=== PATIENT | female | born 1950 | race Caucasian/White ===

== ENCOUNTER 2018-01-11 09:14 | Emergency (ER) | payer OTHER ==
[~2018-01-11] VITALS: Ht 156.2 cm; Wt 57.2 kg
[~2018-01-11 09:14] MED LIST: PHENYTOIN SODI100 MG PO; ZOFRAN ODT4 M1 SL
--- NOTE | 2018-01-11 09:21 | ED AMS/SEIZURE/WEAK/DIZZY ---
History of Present Illness General Chief Complaint: Seizure Stated Complaint: BIBA SEIZURE W/ HISTORY OF Source: patient, family, old records, EMS Exam Limitations: POST ICTAL Vital Signs & Intake/Output Vital Signs & Intake/Output Vital Signs Date Time Temp Pulse Resp B/P B/P Pulse O2 O2 Flow FiO2 Mean Ox Delivery Rate 01/11 0932 98 Room Air Room Air 01/11 09 96.5 82 20 145/80 99 Room Air Room Air Allergies Coded Allergies: No Known Allergies (01/06/18) Reconcile Medications Doxycycline Hyclate 100 MG CAPSULE 1 CAP PO BID ANTIBIOTIC, INFECTION ( Reported) Phenytoin Sodium Extended 100 MG CAPSULE 1 CAP PO TID SEIZURES (Reported) Triage Nurses Notes Reviewed? yes HPI: Patient has had a viral syndrome over the past week however she began to feel better 2 days ago. This morning she got into the shower and then had a witnessed tonic-clonic seizure. Patient has been taking her medications. Patient's last seizure was approximately 10 years ago and again it was after a viral illness. Patient is currently postictal however has no complaints. Patient is alert and oriented however she is unsure what happened. Patient states he does remember getting into the bathtub and extension and she was in the ambulance. Past History Travel History Traveled to [place] past 21 day No Medical History Any Pertinent Medical History? see below for history Neurological: seizure EENT: NONE Cardiovascular: NONE Respiratory: NONE Gastrointestinal: NONE Hepatic: NONE Renal: NONE Musculoskeletal: NONE Psychiatric: NONE Endocrine: NONE Blood Disorders: NONE Cancer(s): NONE LEAD SCIENTIST/Reproductive: NONE Surgical History Surgical History: non-contributory Psychosocial History What is your primary language Bengali Tobacco Use: Never used ETOH Use: denies use Illicit Drug Use: denies illicit drug use Family History Hx Contributory? No Review of Systems Review of Systems Constitutional: Reports: no symptoms. EENTM: Reports: no symptoms. Respiratory: Reports: no symptoms. Cardiovascular: Reports: no symptoms. GI: Reports: no symptoms. Genitourinary: Reports: no symptoms. Musculoskeletal: Reports: no symptoms. Skin: Reports: no symptoms. Neurological/Psychological: Reports: no symptoms. Hematologic/Endocrine: Reports: no symptoms. Immunologic/Allergic: Reports: no symptoms. All Other Systems: Reviewed and Negative Physical Exam Physical Exam General Appearance: well developed/nourished, alert, awake, mild distress Head: atraumatic, normal appearance Eyes: Bilateral: PERRL, EOMI. Ears, Nose, Throat: normal pharynx, normal ENT inspection Neck: normal inspection, supple, full range of motion Respiratory: normal breath sounds, chest non-tender, no respiratory distress, lungs clear Cardiovascular: regular rate/rhythm, normal peripheral pulses Gastrointestinal: normal bowel sounds, soft, non-tender, no organomegaly Back: normal inspection, normal range of motion Extremities: normal range of motion Neurologic/Psych: no motor/sensory deficits, awake, alert, oriented x 3, normal mood/affect Skin: intact, normal color Lymphatic: no anterior cervical desean Core Measures ACS in differential dx? No CVA/TIA Diagnosis No Sepsis Present: No Sepsis Focused Exam Completed? No Progress Differential Diagnosis: intracranial Hem., seizure disorder Plan of Care: Orders Procedure Date/time Status URINALYSIS 01/11 1015 Active DILANTIN 01/11 0920 Complete COMPREHENSIVE METABOLIC PANEL 01/11 09 Complete CBC WITHOUT DIFFERENTIAL 01/11 0920 Complete Current Medications Sig/Brijesh Start time Last Medication Dose Stop Time Status Admin Phenytoin 500 MG ONCE ONE 01/11 1100 UNVr (Dilantin) 01/11 1129 Sodium Chloride 100 ML (Normal Saline 0.9%) Potassium Chloride 40 MEQ ONCE ONE 01/11 1100 AC 01/11 (K-Dur) 01/11 1101 1059 Laboratory Tests 01/11/18 1035: Urine Color Pending, Urine Clarity Pending, Urine pH Pending, Ur Specific [place] Pending, Urine Protein Pending, Urine Ketones Pending, Urine Nitrite Pending, Urine Bilirubin Pending, Urine Urobilinogen Pending, Ur Leukocyte Esterase Pending, Ur Microscopic SEDIMENT EXAMINED, Urine RBC Pending, Urine Hemoglobin Pending, Urine Glucose Pending 01/11/18 0920: Anion Gap 14, Estimated GFR > 60, BUN/Creatinine Ratio 16.7, Glucose 119 H, Calcium 8.9, Total Bilirubin 0.6, AST 73 H, ALT 83 H, Alkaline Phosphatase 155 H, Total Protein 6.5, Albumin 3.7, Globulin 2.8, Albumin/Globulin Ratio 1.3, CBC w Diff NO MAN DIFF REQ, RBC 4.67, MCV 88.5, MCH 30.0, MCHC 33.9, RDW 13.5, MPV 10.6 H, Gran % 46.1, Lymphocytes % 43.2, Monocytes % 10.0 H, Eosinophils % 0.4, Basophils % 0.3, Absolute Granulocytes 2.6, Absolute Lymphocytes 2.5, Absolute Monocytes 0.6, Absolute Eosinophils 0, Absolute Basophils 0, Phenytoin 9.7 L Diagnostic Imaging: Viewed by Me: CT Scan. Discussed w/RAD: CT Scan. Radiology Impression: PATIENT: SOBIA GRANDA PRESENT AGE: 67 PATIENT ACCOUNT NO: [id number] : 49 LOCATION: [facility] ORDERING PHYSICIAN: Kar Anderson MD SERVICE DATE: 01/11/18 EXAM TYPE: CAT - CT CERV SPINE WO IV CONTRAST; CT HEAD WO IV CONTRAST EXAMINATION: CT HEAD WITHOUT CONTRAST. CT CERVICAL SPINE WITHOUT CONTRAST. CLINICAL INFORMATION: Seizure, fall COMPARISON: None TECHNIQUE: A noncontrast CT of the head and a noncontrast CT of the cervical spine with sagittal and coronal reformats are performed. DLP: 931 FINDINGS: No intra-axial or extra-axial hemorrhage. No acute territorial infarct. Ventricles and sulci appear normal. Mild chronic small vessel ischemic disease of the periventricular white matter. Preservation of swift-white matter differentiation. No mass, mass effect, or midline shift. No fracture. The mastoid air cells and visualized paranasal sinuses are clear. Minimal anterolisthesis of C2-C3 which may be related to prominent facet arthrosis on the right. No fracture is demonstrated. No prevertebral soft tissue swelling. There is moderate degenerative disc disease of C4-C5, C5-C6, and C6-C7 with significant bilateral neural foraminal narrowing, as well as T1-T2 with prominent endplate osteophytes. No prevertebral soft tissue swelling. IMPRESSION : No acute intracranial abnormality. Degenerative changes of the cervical spine as described with no acute osseous abnormality. DICTATED BY: Kavon Bryant MD DATE/TIME DICTATED:01/11/181036 DIGITAL STRATEGIST SENIOR MANAGER:CARLENE DATE/TIME TRANSCRIBED:01/11/181036 CONFIDENTIAL, DO NOT COPY WITHOUT APPROPRIATE AUTHORIZATION. <Electronically signed in Other Vendor System> SIGNED BY: Kavon Bryant MD 01/11/18 1049 Initial ED EKG: none Comments: Patient states that her Dilantin level usually runs around 15. Patient states that similar symptoms happen last time she was on doxycycline and she is currently on doxycycline for this viral illness. Departure Departure Disposition: HOME OR SELF CARE Condition: Stable Clinical Impression Primary Impression: Seizure Referrals: Jesenia TORRES,Jose Juan Guaman (PCP/Family) Additional Instructions: Continue medications as previously prescribed. Return if symptoms worsen or for any concerns. Departure Forms: Customer Survey General Discharge Information
[2018-01-11 09:36] LABS: ABSOLUTE BASOPHIL COUNT 0 /CUMM (0.0-0.2); ABSOLUTE EOSINOPHIL COUNT 0 /CUMM (0.0-0.7); ABSOLUTE GRANULOCYTE CT 2.6 /CUMM (1.4-6.5); ABSOLUTE LYMPH COUNT 2.5 /CUMM (1.2-3.4); ABSOLUTE MONOCYTE COUNT 0.6 /CUMM (0.10-0.60); BASOPHIL % 0.3 % (0.0-2.0); EOSINOPHIL % 0.4 % (0-5); GRANULOCYTE % 46.1 % (42.2-75.2); HEMATOCRIT 41.3 % (37-47); MEAN CORPUSCULAR HGB CONC 33.9 G/DL (33.0-37.0); MEAN CORPUSCULAR VOLUME 88.5 FL (81.0-99.0); MEAN PLATELET VOLUME 10.6 FL (7.4-10.4); RBC DISTRIBUTION WIDTH 13.5 % (11.5-14.5); RED BLOOD CELL CT 4.67 /CUMM (4.20-5.40)
[2018-01-11 09:37] LABS: PLATELET COUNT 136 /CUMM (130-400)
[2018-01-11 09:40] LABS: WHITE BLOOD CELL COUNT 5.7 /CUMM (4.8-10.8)
[2018-01-11] MEDS ORDERED: DOXYCYCLINE HY100 M2 PO (10:43)
--- NOTE | 2018-01-11 10:48 | CT SCAN REPORT ---
EXAMINATION: CT HEAD WITHOUT CONTRAST. CT CERVICAL SPINE WITHOUT CONTRAST. CLINICAL INFORMATION: Seizure, fall COMPARISON: None TECHNIQUE: A noncontrast CT of the head and a noncontrast CT of the cervical spine with sagittal and coronal reformats are performed. DLP: 931 FINDINGS: No intra-axial or extra-axial hemorrhage. No acute territorial infarct. Ventricles and sulci appear normal. Mild chronic small vessel ischemic disease of the periventricular white matter. Preservation of swift-white matter differentiation. No mass, mass effect, or midline shift. No fracture. The mastoid air cells and visualized paranasal sinuses are clear. Minimal anterolisthesis of C2-C3 which may be related to prominent facet arthrosis on the right. No fracture is demonstrated. No prevertebral soft tissue swelling. There is moderate degenerative disc disease of C4-C5, C5-C6, and C6-C7 with significant bilateral neural foraminal narrowing, as well as T1-T2 with prominent endplate osteophytes. No prevertebral soft tissue swelling. IMPRESSION: No acute intracranial abnormality. Degenerative changes of the cervical spine as described with no acute osseous abnormality.
[2018-01-11 11:31] VITALS: BP 157/84
== END 2018-01-11 12:24 ==
LOC: ERH 09:14
PROVIDERS: Emergency Medicine
DX: R56.9 Unspecified convulsions (principal)
CPT/HCPCS: 81001; 96365; J1165